=== PATIENT | male | born 1980 | race Two or more races ===

== ENCOUNTER 2018-05-05 00:54 | Emergency (ER) | payer OTHER ==
[2018-05-05] MEDS ORDERED: LIDOCAINE 1% INJ-PF (10 MG/ML) 30 ML SDV INJ ONE (01:42)
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
[2018-05-05] MEDS ORDERED: HYDROCODONE/ACETAMINOPHEN 5-325 MG (6 TAB/ER DISP) PO PRN (03:04)
[2018-05-05 03:42] VITALS: BP 111/74
== END 2018-05-05 03:20 | disposition home or self-care (01) ==
LOC: ER 00:54
DX: S01.511A Laceration without foreign body of lip, initial encounter (principal); K08.89 Other specified disorders of teeth and supporting structures; Y04.0XXA Assault by unarmed brawl or fight, initial encounter; Z91.018 Allergy to other foods; Z91.013 Allergy to seafood; Z91.041 Radiographic dye allergy status
CPT/HCPCS: 99282; 40830; 12011; J3490

== ENCOUNTER 2018-08-17 19:35 | Emergency (ER) | payer OTHER ==
[2018-08-17 19:54] VITALS: BP 119/83
[2018-08-17] MEDS ORDERED: KETOROLAC TROMETHAMINE 60 MG/2 ML SDV IM ONE (20:42)
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
--- NOTE | 2018-08-17 22:39 | RADIOLOGY REPORT (SQ) ---
EXAM DESCRIPTION: XR SHOULDER 2 OR MORE VIEWS COMPLETED DATE/TME: 08/17/2018 20:43 CLINICAL HISTORY: 38 years, Male, Right shoulder pain status post trauma COMPARISON: None. EXAM DESCRIPTION: CLINICAL HISTORY: Right shoulder pain status post trauma COMPARISON: None FINDINGS: 3 view(s) submitted. No fracture or dislocation is identified. Bone marrow attenuation is unremarkable. No radiopaque foreign body is identified. IMPRESSION: No acute fracture or dislocation.
== END 2018-08-17 22:10 | disposition home or self-care (01) ==
LOC: ER 19:35
DX: S40.011A Contusion of right shoulder, initial encounter (principal); M54.5 Low back pain; W20.1XXA Struck by object due to collapse of building, initial encounter; X37.0XXA Hurricane, initial encounter; Y93.89 Activity, other specified; Y92.009 Unspecified place in unspecified non-institutional (private) residence as the place of occurrence of the external cause; Z91.018 Allergy to other foods; Z88.8 Allergy status to other drugs, medicaments and biological substances; Z91.040 Latex allergy status
CPT/HCPCS: 99283; 73030; J1885

== ENCOUNTER → 2018-09-20 | Outpatient (CLI) | payer OTHER ==
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
== END ==
LOC: RAD 06:57
PROVIDERS: ATTEND Family Medicine
DX: K76.89 Other specified diseases of liver (principal)
CPT/HCPCS: 74183; A9576

== ENCOUNTER → 2018-10-12 | Outpatient (CLI) | payer OTHER ==
--- NOTE | 2018-10-12 18:59 | RADIOLOGY REPORT (SQ) ---
EXAM DESCRIPTION: MRI LT UPPER JOINT WITHOUT COMPLETED DATE/TIME: 10/12/2018 8:49 am REASON FOR STUDY: LEFT SHOULDER PAIN M25.512 PAIN IN LEFT SHOULDER COMPARISON: None. TECHNIQUE: Left shoulder images acquired and stored on PACS. Multiplanar imaging to include fat sens itive sequences such as T1, water sensitive sequences such as FST2/STIR, cartilage sensitive sequence s such as FSPD/gradient-echo sequences. LIMITATIONS: None. FINDINGS: BONE MARROW AND CORTEX: No worrisome bone lesions or marrow replacement. No occult fractur es. JOINT OR BURSAL EFFUSION: No significant joint or bursal fluid. No suggestion of loose bodies. GLENO-HUMERAL ARTICULATION: Normal articulation. No subluxation. No cystic change. No osteophytes or cartilage loss. ACROMION AND AC JOINT: Type 2 acromion. No down-sloping or distal spur. Sub-acromial space maintain ed. No significant AC joint arthropathy. ROTATOR CUFF AND INTERVAL: There is a focal small rim rent tear of the distal supraspinatus. This ex tends into the supraspinatus tendon as an interstitial tear. There is no full-thickness tear. No cu ff muscle atrophy. No rotator interval tear. No rotator interval thickening to suggest adhesive capsulitis. LABRUM AND BICEPS LABRAL COMPLEX: Intact. No labral tear. Intra-articular long-head biceps tendon n ormal. Distal biceps in normal location in bicipital groove. REMAINDER OF LABRUM AND IGHL : No gross tear or paralabral cyst formation. Labral evaluation is less than optimal without joint distention. No thickening of IGHL to suggest adhesive capsulitis. PERIARTICULAR AND ADJACENT SOFT TISSUES: No masses or abnormal nodes. OTHER: No other significant finding. IMPRESSION: Small rim rent tear of the supraspinatus extending to an interstitial tear within the te ndon. No full-thickness tear. No muscle atrophy. TECHNICAL DOCUMENTATION: JOB ID: [id number] [employer]- All Rights Reserved Reading location - IP/workstation name: [email or web address]
== END ==
LOC: RAD 08:01
PROVIDERS: ATTEND Family Medicine
DX: M25.512 Pain in left shoulder (principal)